=== PATIENT | female | born 1960 | race Caucasian/White ===

== ENCOUNTER → 2017-08-04 | Outpatient (CLI) | payer OTHER ==
[~2017-08-04] MED LIST: AMBIEN 10 MG TA10 MG PO; ASPIR 8181 MG PO; ASPIRIN325 PO; ATIVAN1 MG PO; CALCIUM; CAPZASIN; CARISOPRODOL 3350 MG PO; CLONAZEPAM 1 MG1 M1 PO; CYMBALTA60 MG PO; EXCEDRIN SINUS1 EAC2; FISHOIL PO; HYDROCODON-ACE1 EAC7 PO; HYDROCODON-ACE1 EACH PO; HYDROCODONE-AP1 EAC6 PO; IRON325 PO; MELOXICAM7.5 MG PO; MULTIVITAMINS; NEXIUM40 MG PO; OMEPRAZOLE40 MG PO; ONDANSETRON HCL4 M2 PO; TOPROL XL25 MG PO; TOPROL XL50 MG PO; TRAMADOL 50 MG50 MG PO; ULTRAM 50MG TAB50 MG PO; ULTRAM50 MG PO; VICODIN; VITAMIN B-121000 MCG PO; VITAMINC500 PO; ZOFRAN 4 MG ORAL4 MG PO; ZOLOFT100 MG PO; ZOLOFT25 MG PO; [UNRECOGNIZED DRUG - OTHER]
--- NOTE | 2017-08-06 09:51 | PAINCON ---
[address] [address] PAIN MANAGEMENT CONSULTATION Name: PHIL MERCER Room: [facility] Gita#: [id number] Admission: 08/04/17 Attend Phys: Ricardo Martinez Discharge: Date of : 56 Report #: [id number] THIS REPORT FOR: //name// CC: Ravin Darling DATE OF SERVICE: 08/04/2017 HISTORY OF PRESENT ILLNESS: The patient is a 57-year-old female, typically treated by Dr. Lisandro Darling for cervical radiculopathy, ongoing axial back pain, osteoarthritis affecting bilateral shoulders, elbows and knees. She requires complex medication management. She had been treated by Dr. Lisandro Darling for a number of years, I had actually treated her back in [address] Lisandro Darling took over her care, I believe, in 12/2008. She returns to pain clinic today, she has been stable on hydrocodone 5/325 one tablet up to 4 times a day, carisoprodol 350 mg b.i.d., tramadol 50 mg 3-4 a day. She does have some chronic anxiety and depression, uses sertraline 25 mg b.i.d. She is hypertensive and has been stable on metoprolol 50 mg b.i.d., the latter written by her generalist physician. She returns to pain clinic today for a routine followup, though she is quite tearful today. She has had multiple psychosocial issues. She had lost her job. She now works in the [employer]. She has some financial concerns and has new insurance. She bought the Affordable Care Act insurance from the state exchange and unfortunately her primary care physician and health advisor are not on this and she has not been able to refill her Toprol. She is a little hypertensive today. She also tells me that her mother had passed in the past few months and her 's mother (the patient's [id number]) last night. Overall, her pain has been worse with stresses and increased activity. She rates her pain a "10+" on VAS, although notes her average pain is about a 7/10. PHYSICAL EXAMINATION: Shows 5 feet 4 inches, 123 pounds female, BMI is 21.1 kilograms per meter squared. Blood pressure is modestly elevated 162/92, pulse 97, respirations 18. Cervical range of motion is a little bit limited, shoulder range of motion is full. Strength is 4/5 to all muscle groups tested, though subjective pain in the shoulder and elbows. She does have pain in her right knee, though exam is fairly unremarkable. No ballottable edema is noted and the ligaments are intact. Left knee does show a little bit of laxity in the drawers test, but no subjective pain noted here. The patient does note pain in the left ankle and indeed there is a bony prominence, left foot medial aspect of the arch. She is status post [facility] [place] [address] PAIN MANAGEMENT CONSULTATION Name: PHIL MERCER Room: [facility] MELINA Gita#: [id number] Admission: 08/04/17 Attend Phys: Ricardo Martinez Discharge: Date of : 56 Report #: [id number] hammertoe surgeries on both feet greater than 10 years ago. We reviewed the fact that opiate medications are being used to provide analgesia adequate to support activities of daily living, not attempting to achieve a specific pain score on the 0-10 Visual Analog Scale. The current opiate medications are providing sufficient analgesia to allow the patient to participate in activities of daily living. The patient is not exhibiting any aberrant behavior suggestive of drug diversion. The patient is not having any adverse reactions to medications. The patient is not suffering from daytime somnolence or mental acuity changes. The patient is managing opiate-induced constipation with appropriate pyiy-nib-kgcwzza agents and dietary considerations. The patient was counseled on concern for caution with operating a motor vehicle while using opiate medications. A physical exam was performed and the patient's functional status was evaluated. All patients with back pain were advised against the bed rest greater than 4 days and were advised to return to normal activities. Pain score assessment was noted and the treatment plan was reviewed with the patient. All current medications, both prescribed and OTC were reviewed and reconciled on the electronic medical record. Tobacco screening was accomplished and smoking cessation was advised when indicated. BMI was noted and diet/exercise modification was recommended for all patients following outside normal parameters. I reviewed with the patient today their responsibilities to safeguard prescription medications, reviewed their responsibility to utilize medications only as prescribed by the physician. They are to seek and receive pain medications only from 1 physician group ( [facility]). They are to use 1 pharmacy and keep the clinic informed if they change pharmacies. Their responsibilities include making followup visits in a timely fashion and to avoid abrupt discontinuation of medication usage. Their responsibilities further include bringing their medications (bottles from the pharmacy with residual pills) to the visit for possible confirmation of pill counts and the patient understands it is their responsibility to submit to random drug screens to ensure both that the medications prescribed are present, and that no other controlled substances are present. All prescriptions provided today were generated electronically. ASSESSMENT: Symptomatic chronic pain syndrome requiring complex medication management, osteoarthritis affecting bilateral shoulders, elbows, knees and feet. Cervical radiculopathy by history, chronic anxiety and hypertension. RECOMMENDATION: We will renew current medications unchanged, typically Zoloft and metoprolol have been written by her generalist and/or health advisor, I will renew those today. I have taken the liberty of renewing her hydrocodone 5/325, #120 tablets for release today, 4 weeks and 8 weeks; renewed tramadol [address] [place] [address] PAIN MANAGEMENT CONSULTATION Name: PHIL MERCER Room: [facility]#: [id number] Admission: 08/04/17 Attend Phys: Ricardo Martinez Discharge: Date of : 56 Report #: [id number], 100 tablets for 30 days, 1 tablet 3-4 times a day with 2 refills. Follow up in 3 months for reevaluation. Discharged in good stable condition. We had a moderately prolonged visit today reviewing extensive interval history. The patient was seen for greater than 25 minutes; approximately 50% of this time was spent counseling the patient. <ELECTRONICALLY SIGNED> By: Danny Darling DO 08/06/17 0951 [id number] Darling DO /nt
== END ==
LOC: M.PC 07-28 09:00
DX: I10 Essential (primary) hypertension (principal); M19.022 Primary osteoarthritis, left elbow; M19.021 Primary osteoarthritis, right elbow; M19.012 Primary osteoarthritis, left shoulder; M19.011 Primary osteoarthritis, right shoulder; M17.0 Bilateral primary osteoarthritis of knee; M19.072 Primary osteoarthritis, left ankle and foot; M19.071 Primary osteoarthritis, right ankle and foot; M54.2 Cervicalgia; F41.8 Other specified anxiety disorders

== ENCOUNTER → 2018-06-28 | Outpatient (CLI) | payer OTHER ==
[~2018-06-28] MED LIST changes: +BACLOFEN 10MG T10 MG PO
--- NOTE | ~2018-06-28 | PAINCON ---
[address] [address] PAIN MANAGEMENT CONSULTATION Name: PHIL MERCER Room: [facility] CHARLES Pelayo#: [id number] Admission: 06/28/18 Attend Phys: Abdias Jackson MD Discharge: Date of : 56 Report #: [id number] THIS REPORT FOR: //name// CC: Ravin Jackson DATE OF SERVICE: 06/28/2018 HISTORY/CHIEF COMPLAINT: Here for medication renewal. FOLLOWUP HISTORY: The patient is a 58-year-old female who has been referred to the Pain Clinic. She has a history of generalized joint pain. She has had problems over the number of years. At this juncture, she is suffering from frequent spasms. 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 She works at the [email or web address]. The patient's primary physician Dr. Narvaez has retired. She has come to the pain clinic with the hopes of receiving her medication and pain control through the Pain Clinic. She has had epidural steroid injections in the past. She has undergone physical therapy. She notes her pain increases with activities, walking, sitting, standing, climbing stairs, bending and lifting. Use of medication and heat have been helpful. She has a history of migraines. Has had some problems with stricture of esophagus. She has had some problems with cervical radiculopathy and continues to have some axial back pain affecting her shoulders bilaterally. Has some complaints of pain in her elbows and knees. She has been treated with complex medical management. She comes to the Pain Clinic with his desire to undergo treatment. ALLERGIES: No known drug allergies. CURRENT MEDICATIONS: Vitamin C 500 mg b.i.d., aspirin 81 mg, baclofen 10 mg t.i.d., Nexium 40 mg b.i.d., hydrocodone 5/325 one p.o. q.i.d., metoprolol XL 50 mg b.i.d., multivitamins 1 tablet, Zoloft 25 mg, 2 tablets daily, tramadol 50 mg 1 tablet q. 4-6 hours p.r.n. PAST MEDICAL HISTORY: 1. Ventricular septal defect, its be monitored. 2. Migraines. 3. Osteoarthritis of the joints as described above. 4. Bone spur in the neck. 5. Esophageal stricture. 6. Chronic right shoulder pain, bilateral elbow pain, bilateral hip pain, bilateral knee pain, chronic intractable pain. PAST SURGICAL HISTORY: Total hysterectomy in 1984, bilateral foot surgery in 2002, hernia repair in 1999 and 8 inches of intestine removed at the same time, tonsils in 1969, arthritis, dilation of the [place]ophagus 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 REVIEW OF SYSTEMS: Bilateral knee pain, neck pain, mid back pain, bilateral hip pain, right shoulder pain, bilateral elbow pain, anxiety disorder, gastroesophageal reflux disease, insomnia. LABORATORY DATA: No new laboratory values are available at the time of our interview. PAIN CLINIC ASSESSMENT: 1. Osteoarthritis. The patient has some arthritic changes involving her neck, shoulders, elbows, knees. The patient is not being treated for rheumatoid arthritis. 2. Height 5 feet 4 inches, weight 111 pounds, BMI is 19. 3. Vital signs: Blood pressure 128/72, heart rate 75, respiratory rate 16, room air saturation 99%, temperature is 98.2. 4. Pain intensity 6/10. 5. Fall history: The patient has not fallen in the last 3 months. The patient did fall on the ice about 10 days ago, did not require a visit to the Emergency Room. 6. Blood thinner. The patient is not on a blood thinning medication. 7. Hypertension. The patient is being treated for hypertension. 8. Opioids greater than 6 weeks. The patient received her medications through her primary physician. 9. Risk assessment tool, low for opioid use. 10. Functional assessment tool. 11. Recreational drug use. The patient denies use of recreational drugs. 12. Tobacco: The patient stopped smoking about 2 years ago, has 40 year smoking history. 13. Alcohol. The patient drinks only on social occasion. PHYSICAL EXAMINATION: GENERAL: The patient is a well-developed, well-nourished white female. Appears her stated age. She is alert and oriented x 3. Her affect is appropriate. Speech is fluent. HEENT: Normocephalic, atraumatic. Extraocular eye muscles intact. Sclerae nonicteric. Mucous membranes are moist. NEUROLOGIC: Without adenopathy or JVD. The patient has pain in the lower portion of her back. Deep tendon reflexes are +1 for the biceps bilaterally. The patient notes a popping sensation in the lower portion of her back. Forward bending to 45 degrees cause some increased discomfort. Lumbar extension was not very problematic left and right lateral rotation, left and right lateral bending were not very problematic. Deep tendon reflexes at the knees are +2 and +1 at the ankles bilaterally. [address] [place] [address] PAIN MANAGEMENT CONSULTATION Name: PHIL MERCER Room: [facility]#: [id number] Admission: 06/28/18 Attend Phys: Abdias Jackson MD Discharge: Date of : 56 Report #: [id number] IMPRESSION: Chronic right shoulder pain, bilateral elbow pain, bilateral hip pain, bilateral knee pain, chronic intractable pain as a result of her chronic symptomatic pain requiring complex medical management including osteoarthritis effecting her shoulders, elbows, knees and feet as well as some cervical radiculopathy history, chronic anxiety and hypertension. RECOMMENDATIONS: We will continue with her medications of tramadol 50 mg 1 p.o. t.i.d., total 100 tablets have been dispensed, hydrocodone 5/325 one p.o. q.4-6 hours 120 mg tablets, baclofen 10 mg 1 p.o. t.i.d. These medications enable the patient to stay gainfully employed. States that she has taken the medication as prescribed. We have discussed the problems with opioid medications, which could include development of tolerance as well as problems with addiction. The patient feels her medications are working well. She keeps them in a guarded area. She would like to continue with her medication. We will follow the patient on a regular basis. We would like to thank you for letting us participate in her care. We hope she continues to improve. By: [id number]. MD carson Cote
== END ==
LOC: M.PC 05:55
DX: M19.011 Primary osteoarthritis, right shoulder (principal); M19.012 Primary osteoarthritis, left shoulder; M17.0 Bilateral primary osteoarthritis of knee; M19.022 Primary osteoarthritis, left elbow; M19.021 Primary osteoarthritis, right elbow; M54.12 Radiculopathy, cervical region; G89.4 Chronic pain syndrome; F41.9 Anxiety disorder, unspecified; I10 Essential (primary) hypertension; Z79.899 Other long term (current) drug therapy

== ENCOUNTER → 2018-08-02 | Outpatient (CLI) | payer OTHER ==
[~2018-08-02] MED LIST changes: +PROPRANOLOL 1010 MG PO
--- NOTE | ~2018-08-02 | PAINCON ---
[address] [address] PAIN MANAGEMENT CONSULTATION Name: PHIL MERCER Room: [facility]#: [id number] Admission: 08/02/18 Attend Phys: Abdias Jackson MD Discharge: Date of : 56 Report #: [id number] THIS REPORT FOR: //name// CC: Syd Jackson DATE OF SERVICE: 08/02/2018 HISTORY OF PRESENT ILLNESS: The patient is a 58-year-old female who has been seen in the Pain Clinic. She has a history of joint pain, this has been problematic for a number of years. She works in [employer] in [place]. She has received pain medications from her primary physician. She is retired. She has undergone physical therapy. She has a history of migraine headaches. She has had some problems with strictures of her esophagus. She has had cervical radicular problems as well as axial back pain. She has pain in her elbows as well as her knees. She has been treated with complex medical management to help her stay gainfully employed and active. ALLERGIES: No known drug allergies. MEDICATIONS: Vitamin C 500 mg b.i.d., aspirin 81 mg, baclofen 10 mg t.i.d., Nexium 40 mg b.i.d., hydrocodone 5/325 one p.o. q.i.d., metoprolol XL 50 mg b.i.d., multivitamin 1 tablet, Zoloft 25 mg 2 tablets daily, tramadol 50 mg 1 tablet q. 4-6 hours p.r.n. PAIN CLINIC ASSESSMENT AND PQRS: 1. The patient has some arthritic changes in her neck, shoulders, elbows, and knees. She is not being treated for rheumatoid arthritis. 2. Height 5 feet 4 inches, weight 108 pounds, BMI is 18, blood /82, heart rate 84, respiratory rate 16, room air saturation 97%, temperature 98.0. 3. Pain: 12/17. 4. Fall history: The patient did fall on ice in June. 5. Blood thinner: The patient is not on a blood thinning medication. 6. Hypertension: The patient is being treated for hypertension. 7. Opioid greater than 6 weeks: The patient receives her medications from [facility]. 8. Risk assessment tool: Low for opioid use. 9. Functional assessment tool. 10. Recreational drug use: The patient denies use of recreational drugs. 11. Tobacco: The patient stopped smoking about 2 years ago. She has a 66-cfzd-emgw smoking history. 12. Alcohol: The patient denies use of alcoholic beverages except on social occasions. PHYSICAL EXAMINATION: GENERAL: The patient is a well-developed, well-nourished, [place] [address] PAIN MANAGEMENT CONSULTATION Name: SYLVIEPHIL A Room: [facility]#: [id number] Admission: 08/02/18 Attend Phys: Abdias Jackson MD Discharge: Date of : 56 Report #: [id number] appears her stated age. She is alert and oriented x 3. Her affect is appropriate. Speech is fluent. HEENT: Normocephalic, atraumatic. Extraocular eye muscles are intact. Sclerae nonicteric. Mucous membranes are moist. NECK: Without adenopathy or JVD. MUSCULOSKELETAL: The patient has pain in the lower portion of her back. Deep tendon reflexes are +1. She complains of popping sensation in her lower back. Forward bending at 45 degrees notes increased discomfort. Deep tendon reflexes are +2 at the knees and ankles bilaterally. IMPRESSION: Chronic right shoulder pain, bilateral elbow pain, bilateral hip pain, bilateral knee pain, chronic intractable pain, treated with a complex medical management including opioid medications. RECOMMENDATIONS: We discussed treatment options with the patient. We will continue with the patient's use of tramadol 50 mg t.i.d., hydrocodone 5/325 one p.o. q. 4-6 hours 120 tablets, baclofen 10 mg 1 p.o. t.i.d. The patient finds that these medications enable her to remain gainfully employed. She states that she is taking the medications as prescribed, she keeps them in a guarded area. She is not having any problems with mentation. A script for these medications have been rewritten. The patient will follow up in the future as needed. We would like to thank you for letting us participate in her care. We hope she continues to improve. By: [id number]. Matt Jackson MD /nael
== END ==
LOC: M.PC 07-26 08:00
DX: M25.511 Pain in right shoulder (principal); G89.4 Chronic pain syndrome; M25.561 Pain in right knee; M25.562 Pain in left knee; M25.551 Pain in right hip; M25.552 Pain in left hip; M25.521 Pain in right elbow; M25.522 Pain in left elbow; Z79.899 Other long term (current) drug therapy; Z79.891 Long term (current) use of opiate analgesic

== ENCOUNTER → 2018-08-30 | Outpatient (CLI) | payer OTHER ==
--- NOTE | 2018-09-01 12:05 | PAINCON ---
[facility] [address] [place] [address] PAIN MANAGEMENT CONSULTATION Name: PHIL MERCER [facility] [id number] Admission: 08/30/18 Attend Phys: Abdias Jackson MD Discharge: Date of : 56 Report #: [id number] THIS REPORT FOR: //name// CC: Syd Jackson DATE OF SERVICE: 08/30/2018 CHIEF COMPLAINT: "Things are going well. FOLLOWUP HISTORY: The patient is a 58-year-old female who has been seen in the pain clinic. She has a history of pain in a number of areas. She has knee pain. Pain that is most problematic today is that in her right arm. Notes sometimes her hand goes to sleep if she lays on it. She is doing reasonably well from her esophageal stricture point. She does occasionally have pills get stuck in her throat. She has undergone a number of EGD's in the past. Continues to work at the [employer]. She likes her job. Works from 4 a.m. and gets off at 10:30. She states she has more of a morning person. Has returned today for renewal of her medication. Feels that the medications are helpful. Rates her pain as a 6-7/10 today. ALLERGIES: No known drug allergies. CURRENT MEDICATIONS: Vitamin C 500 mg b.i.d., aspirin 81 mg, baclofen 10 mg t.i.d., Nexium 40 mg b.i.d., hydrocodone 5/325 q.i.d., metoprolol XL 50 mg b.i.d., multivitamin tablet 1, Zoloft 25 mg 2 tablets daily, tramadol 50 mg one every 4-6 hours p.r.n. PAIN CLINIC ASSESSMENT/PQRS: 1. The patient has some arthritic changes in her neck, shoulders, elbows and knees. She has not been treated for rheumatoid arthritis. 2. Height 5 feet 4 inches, weight 107 pounds, BMI 18.3. 3. Vital Signs: Blood pressure 125/79, heart rate 84, respiratory rate 16, room air saturation 97%, temperature 98.3. 4. Pain intensity 6-7/10. 5. Fall history, the patient has not fallen in the last 3 months. 6. Blood thinner. The patient is not on a blood thinning medication. 7. Hypertension. The patient is being treated for hypertension. 8. Opioid greater than 6 weeks. The patient [facility]. 9. Risk assessment tool, low for opioid use. 10. Functional assessment tool. 11. Recreational drug use. The patient denies use of recreational drugs. 12. Tobacco: The patient has stopped smoking cigarettes about 2 years ago, has a 19-pxfx-[place] [address] PAIN MANAGEMENT CONSULTATION Name: PHIL MERCER Julián Room: [facility]#: [id number] Admission: 08/30/18 Attend Phys: Abdias Jackson MD Discharge: Date of : 56 Report #: [id number] 13. Alcohol: The patient denies use of alcoholic beverages except on a social occasion. PHYSICAL EXAMINATION: GENERAL: The patient is well-developed, well-nourished white female. Appears her stated age. She is alert and oriented x 3. Affect is appropriate. Speech is fluent. HEENT: Normocephalic, atraumatic. Extraocular eye muscles intact. Sclerae nonicteric. Mucous membranes moist. NECK: Without adenopathy or JVD. HEART: Regular rate. ABDOMEN: Nontender. Bowel sounds present. MUSCULOSKELETAL: Upper extremity judged to be 5-/5 for the major muscle groups in the upper extremity. The patient has some pain and discomfort in the right knee as well as in the shoulders, neck, and elbow area. IMPRESSION: Chronic right shoulder pain, bilateral elbow pain, bilateral hip pain, bilateral knee pain, chronic intractable pain treated with complex medical management including opioid medications. RECOMMENDATIONS: We will continue with the patient's current medications. Feels that the medications are helpful. She remains gainfully employed. Feels that the medication is doing a good job. She is able to perform and do more activities with less discomfort on her current medical regimen. A script for hydrocodone 5 mg 1 p.o. q.i.d., baclofen 10 mg t.i.d., and Ultram 50 mg 1 p.o. t.i.d. to q.i.d. 100 tablets have been reissued. We would like to thank you for letting us participate in her care. We hope she continues to improve. <ELECTRONICALLY SIGNED> By: Abdias Jackson MD 09/01/18 1205 [id number]. Matt Jackson MD /nael
== END ==
LOC: M.PC 04:53
DX: G89.29 Other chronic pain (principal); M54.2 Cervicalgia; M25.551 Pain in right hip; M25.552 Pain in left hip; M25.521 Pain in right elbow; M25.522 Pain in left elbow; M25.561 Pain in right knee; M25.562 Pain in left knee; I10 Essential (primary) hypertension; Z79.82 Long term (current) use of aspirin; Z79.899 Other long term (current) drug therapy; Z79.891 Long term (current) use of opiate analgesic

== ENCOUNTER → 2018-09-27 | Outpatient (CLI) | payer OTHER ==
--- NOTE | ~2018-09-27 | PAINCON ---
[address] [address] PAIN MANAGEMENT CONSULTATION Name: PHIL MERCER Room: [facility] CHARLES Pelayo#: [id number] Admission: 09/27/18 Attend Phys: Abdias Jackson MD Discharge: Date of : 56 Report #: [id number] THIS REPORT FOR: //name// CC: Syd Jackson DATE OF SERVICE: 09/27/2018 CHIEF COMPLAINT: Here for my medicine and I am having some pain in my right shoulder, right elbow, and right leg. HISTORY OF PRESENT ILLNESS: The patient is a 58-year-old female who has been followed in the pain clinic. As you recall, she has pain in her right arm. Pain radiates down her right arm as well as down into her right elbow. She is having some discomfort in her right knee. Has noted some increased swelling and pain in her left and right ankle. She continues to be dizzy. Denies any new trauma. She feels may be that her increased pain and discomfort is secondary to working. 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 She works early at 4:00 a.m. and gets off at 10:30. She rates her pain as a 9/10 today. Notes that the change in weather pattern, which has been very fluctuating has made her pain more problematic. There is a possibility of Tornadic action today. There is significant rain today as well as for the next 4-5 days. ALLERGIES: No known drug allergies. CURRENT MEDICATIONS: Vitamin C 500 mg, aspirin 81 mg, baclofen 10 mg t.i.d., Nexium 40 mg b.i.d., hydrocodone 5/325 q.i.d., metoprolol XL 50 mg, multivitamin tablet 1, Zoloft 25 mg 2 tablets daily, tramadol 50 mg one every 4-6 hours p.r.n. PAIN CLINIC ASSESSMENT AND PQRS: 1. The patient has some arthritic changes in her neck, shoulders, elbows and knees. She is not being treated for rheumatoid arthritis. 2. Height 5 feet 4 inches, weight 112 pounds, BMI is 19.3. 3. Vital signs: Blood pressure 119/76, heart rate 77, respiratory rate 16, room air saturation 97%, temperature 98.1. 4. Pain intensity 9/10. 5. Fall history: The patient has not fallen in the last 3 months. 6. Blood thinner. The patient is not on a blood thinning medication. 7. Hypertension. The patient is being treated for hypertension. 8. Opiates greater than 6 weeks. The patient [facility]. 9. Risk assessment tool, low for opioid use. 10. Functional assessment tool. 11. Recreational drug use. The patient denies [place] [address] PAIN MANAGEMENT CONSULTATION Name: PHIL MERCER ANDERSON [id number] Admission: 09/27/18 Attend Phys: Abdias Jackson MD Discharge: Date of : 56 Report #: [id number] 12. Tobacco: The patient stopped smoking cigarettes 2 years ago, has a 84-[id number]-wxpw history. 13. Alcohol: The patient denies alcoholic beverages except on rare social events. PHYSICAL EXAMINATION: GENERAL: The patient is a well-developed, well-nourished white female. Appears her stated age. She is alert and oriented x 3. Affect is appropriate. Speech is fluent. HEENT: Normocephalic, atraumatic. Extraocular eye muscles intact. Sclerae nonicteric. Mucous membranes are moist. NECK: Without adenopathy or JVD. HEART: Regular rate. EXTREMITIES: Upper extremity muscle strength is judged to be 5-/5 for the major muscle groups. The patient has pain in her right shoulder, also has pain down in the right elbow. Has pain in her right knee. Notes some bilateral swelling and discomfort in her ankles. IMPRESSION: 1. Chronic right shoulder pain. 2. Bilateral elbow pain. 3. Bilateral hip pain. 4. Bilateral knee pain. 5. Chronic intractable pain treated with complex medical management. 6. Opioid medication management. RECOMMENDATIONS: We discussed treatment options with the patient. At this juncture, we will continue with her medications. She feels that the tramadol medication is helpful, takes about 4 tablets daily, feels that baclofen is helpful with the muscle spasm and hydrocodone is beneficial as well. Notes that she is having some increased pain and discomfort with activities such as walking, standing, climbing stairs, and lifting. 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 Feels that this may have something to do with her pain as well. She is taking the medications as prescribed. Keeps it in a guarded area. She is aware that opioid medications can be a problem for some people with development of tolerance as well as the development of addictive behaviors. She feels the medication is helpful and enables her to continue to be gainfully employed. Feels that her pain is 50% improved with her medication regimen at this time. A script for her medications of tramadol 50 mg 1 p.o. q.i.d. has been written. The patient will also continue with hydrocodone 1 tablet q. 4-6 hours total of 120 tablets, and baclofen 10 mg 1 [place] [address] PAIN MANAGEMENT CONSULTATION Name: PHIL MERCER Room: [facility].#: [id number] Admission: 09/27/18 Attend Phys: Abdias Jackson MD Discharge: Date of : 56 Report #: [id number] We would like to thank you for letting us participate in her care. We hope she continues to improve. By: [id number]. Matt Jackson MD /nt
== END ==
LOC: M.PC 11:00
DX: G89.29 Other chronic pain (principal); M19.011 Primary osteoarthritis, right shoulder; M19.012 Primary osteoarthritis, left shoulder; M19.021 Primary osteoarthritis, right elbow; M19.022 Primary osteoarthritis, left elbow; M17.0 Bilateral primary osteoarthritis of knee; M47.812 Spondylosis without myelopathy or radiculopathy, cervical region; I10 Essential (primary) hypertension; Z79.891 Long term (current) use of opiate analgesic; Z79.899 Other long term (current) drug therapy

== ENCOUNTER → 2018-11-01 | Outpatient (CLI) | payer OTHER ==
[~2018-11-01] MED LIST changes: +NORCO 5-325 TA1 EAC1 PO
--- NOTE | ~2018-11-01 | PAINCON ---
[address] [address] PAIN MANAGEMENT CONSULTATION Name: PHIL MERCER Room: [facility] CHARLES Lee.#: [id number] Admission: 11/01/18 Attend Phys: Abdias Jackson MD Discharge: Date of : 56 Report #: [id number] THIS REPORT FOR: //name// CC: Syd Jackson DATE OF SERVICE: 11/01/2018 CHIEF COMPLAINT: Pain in the right knee and joints. HISTORY: The patient is a 58-year-old female who has been followed in the pain clinic. She returns today for renewal of her medications. She has had pain involving her right arm. Notes the pain that radiates down into her elbow. She has been out of her medications since the , which is 3 days. She is having a migraine headache. Notes that her migraine headaches oftentimes last for a number of days. She was also having some pain and discomfort in her foot on the left side. She describes it as a painful knot at the bottom of her foot. She feels that the use of baclofen, tramadol, and hydrocodone are still helpful. Activities such as walking, sitting, standing, lifting, and bending are problematic. She has used heat and finds that that has been beneficial as well. She states that her insurance has given her a limited number of visits to her physicians. She continues to work. She feels that visits to her physicians are $500 copay. She finds that quite a bit of money at this point and she is not sure that she could sustain that level of cost. ALLERGIES: No known drug allergies. CURRENT MEDICATIONS: Vitamin C, aspirin 81 mg, baclofen 10 mg 1 p.o. t.i.d., Nexium 40 mg b.i.d., hydrocodone 5/325 q.i.d., metoprolol XL 50 mg, multivitamins, Zoloft 25 mg 1 tablet daily, tramadol 50 mg every 4-6 hours p.r.n. PAIN CLINIC ASSESSMENT/PQRS: 1. The patient has some arthritic changes in her neck, shoulders, elbows, and knees. She is not being treated for rheumatoid arthritis. 2. Height 5 feet 4 inches, weight 109 pounds, BMI is 18.8. 3. Vital signs: Blood pressure 114/83, heart rate 82, respiratory rate 16, room air saturation 97%, temperature 98.8. 4. Pain intensity score 9/10. 5. Fall history: The patient has not fallen in the last 3 months. 6. Blood thinner. The patient is not on a blood thinning medication. 7. Hypertension. The patient is being treated for hypertension. 8. Opioid greater than 6 weeks. The patient receives her medication from [facility]. 9. Risk assessment tool, low [place] [address] PAIN MANAGEMENT CONSULTATION Name: PHIL MERCER ANDERSON Room: [facility] Gita#: [id number] Admission: 11/01/18 Attend Phys: Abdias Jackson MD Discharge: Date of : 56 Report #: [id number] 10. Functional assessment tool. 11. Recreational drug use. The patient denies use of recreational drugs. 12. Tobacco: The patient has stopped smoking cigarettes 2 years ago, had a 65-svck-worm history. 13. Alcohol: The patient denies alcoholic beverages except on rare occasion. PHYSICAL EXAMINATION: GENERAL: The patient is a well-developed, well-nourished white female. Appears her stated age. She is alert and oriented x 3. Her affect is appropriate. Speech is fluent. HEENT: Normocephalic, atraumatic. Extraocular eye muscles intact. Sclerae nonicteric. Mucous membranes are moist. The patient is complaining of a migraine headache at this juncture. It has been problematic over the last few days. NECK: Without adenopathy or JVD. HEART: Regular rate. EXTREMITIES: Upper extremity muscle strength is judged to be 5-/5 for the major muscle groups in the upper extremity. The patient has pain that radiates down into her arms and her elbow. Has some pain in her right knee today, which is problematic. Has noted some swelling and discomfort in her ankles in the past. IMPRESSION: 1. Chronic right shoulder pain. 2. Bilateral elbow pain. 3. Bilateral hip pain. 4. Bilateral knee pain. 5. Chronic intractable pain treated with complex medical management using opioids. RECOMMENDATIONS: We discussed treatment options with the patient. Risks and benefits of opioid medications were again discussed. They include but are not limited to development of tolerance as well as possibility of addiction. The patient does not feel she is addict to her medication. She is taking the medication as prescribed. States gainfully employed. Feels that the baclofen medication is beneficial. She feels that tramadol is helpful as well. The hydrocodone seems to be helpful and she would like to continue with her medication. She explained that her insurer has limited number of visits to her physicians. A monthly visits to the pain clinic for more than $500 a month. She is unable to sustain this. We will have the patient come on a bimonthly/2 months cycle. She will call us if she has any concerns. A script for her medications of hydrocodone 5/325 one p.o. q.i.d. has been written. She will also continue with tramadol and baclofen. Refills for these medications have been made as well. We will continue with the use of her medications to help control her pain and enable her to stay gainfully employed. She will call us if she has any concerns. We will continue and rewritten the patient's medications and we will continue with followup in the future in controlling [place] [address] PAIN MANAGEMENT CONSULTATION Name: PHIL MERCER ANDERSON Room: [facility].#: [id number] Admission: 11/01/18 Attend Phys: Abdias Jackson MD Discharge: Date of : 56 Report #: [id number] complex medical management with the use of opioid medications as a tool. We would like to thank you for letting us participate in her care. We hope she continues to improve. By: [id number]. Matt Jackson MD /[place]
== END ==
LOC: M.PC 05:45
DX: M25.561 Pain in right knee (principal); G89.4 Chronic pain syndrome; M25.551 Pain in right hip; M25.552 Pain in left hip; M25.562 Pain in left knee; M25.522 Pain in left elbow; M25.521 Pain in right elbow; Z79.891 Long term (current) use of opiate analgesic; Z79.899 Other long term (current) drug therapy

== ENCOUNTER → 2018-12-27 | Outpatient (CLI) | payer OTHER ==
--- NOTE | ~2018-12-27 | PAINCON ---
[address] [address] PAIN MANAGEMENT CONSULTATION Name: PHIL MERCER Room: [facility] CHARLES Dsouza.Ronit.#: [id number] Admission: 12/27/18 Attend Phys: Abdias Jackson MD Discharge: Date of : 56 Report #: [id number] THIS REPORT FOR: //name// CC: Syd Jackson DATE OF SERVICE: 12/27/2018 CHIEF COMPLAINT: "I have noticed migraine headaches, more at this point." HISTORY: The patient is a 58-year-old female who has been followed in the pain clinic. As you may recall, she has pain in her right knee as well as in her joints. She also has a history of migraine headaches. She had been using Soma in the past. She feels that medication has been helpful with decreasing her pain as well as enabling her to rest more comfortably. She has tried baclofen. She stopped taking this medication, did not feel that it was working as well as she would like. She would like to resume use of the Soma medications. 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 This work . It involves walking, sitting, bending, standing and all these can be quite problematic for her at this juncture. ALLERGIES: No known drug allergies. CURRENT MEDICATIONS: Vitamin C, aspirin 81 mg, baclofen 10 mg 1 p.o. t.i.d., Nexium 40 mg b.i.d., hydrocodone 5/325 one p.o. q.i.d., metoprolol XL 50 mg, multivitamins, Zoloft 25 mg 1 tablet b.i.d., and tramadol 50 mg 1 q.4-6 hours. PAIN CLINIC ASSESSMENT/PQRS: 1. The patient has had some arthritic changes in her shoulders, neck, elbows. and knees. She is not being treated for rheumatoid arthritis. 2. Height 5 feet 4 inches, weight 106 pounds, BMI is 18. 3. Vital signs: Blood pressure 154/88, heart rate 95, respiratory rate 16, room air saturation is 98%, temperature 98.3. 4. Pain intensity 10. 5. Fall history: The patient has not fallen in the last 3 months. 6. Blood thinner. The patient is not on a blood thinning medication. 7. Hypertension. The patient is being treated for hypertension. 8. Opioids greater than 6 weeks. The [facility]. 9. Risk assessment tool, low for opioid use. 10. Functional assessment tool. 11. Recreational drug use. The patient denies use of recreational drugs. 12. Tobacco: The patient has stopped smoking cigarettes 2 years ago, has had a 07-kvlk-xrjo history. 13. Alcohol. The patient denies alcoholic beverages [place] [address] PAIN MANAGEMENT CONSULTATION Name: PHIL MERCER [id number] Admission: 12/27/18 Attend Phys: Abdias Jackson MD Discharge: Date of : 56 Report #: [id number] PHYSICAL EXAMINATION: GENERAL: The patient is a well-developed, well-nourished white female. Appears her stated age. She is alert and oriented x 3. Affect is appropriate. Speech is fluent. HEENT: Normocephalic, atraumatic. Extraocular eye muscles intact. Sclerae nonicteric. Mucous membranes are moist. NECK: Without adenopathy or JVD. HEART: Regular. EXTREMITIES: Upper extremity muscle strength judged to be 5-/5 for the major muscle groups in the upper extremity. The patient has pain and discomfort that radiates down into her arms and involves her elbow. Has some pain and discomfort in her right knee. Has noted some increased swelling in her ankles in the past. IMPRESSION: 1. Chronic right shoulder pain. 2. Bilateral elbow pain. 3. Bilateral hip pain. 4. Bilateral knee pain. 5. Chronic intractable pain treated with complex medical regimen using opioids. RECOMMENDATIONS: We discussed treatment options with the patient. At this juncture, she feels that her medications are helpful. She has noted some increased problems with migraine headaches. She was using Soma in the past. She found that medication was helpful with muscle spasms as well as she felt that it enables her to sleep better. She has not been taking the medication the baclofen medication. We will therefore renew her Soma. A script for 350 mg 1 p.o. b.i.d. has been written. The patient also has noted increase in her anxiety recently. She had been receiving Zoloft 25 mg 1 p.o. b.i.d. She felt that medication was helpful, but has not taken it for a number of months. She has noted her anxiety level increasing. We will rewrite for the Zoloft 25 mg 1 p.o. b.i.d. We will continue with the patient's [place] 5 mg one p.o. q.4-6 four tablets daily. A script for the tramadol 50 mg 1 p.o. t.i.d. have been rewritten. The patient will call us if she has any concerns. Hopefully, the resumption of Zoloft will help with her anxiety level. Our hope is that the muscle relaxant Soma will help with her relaxation as well, so that she is able to sleep better and continue to be gainfully employed. A script for these medications have been written. We will continue with her pain control using complex medical management using opioids. She will call us if she has any concerns. By: [id number]. Matt Jackson MD /[place]
== END ==
LOC: M.PC 05:08
DX: M25.511 Pain in right shoulder (principal); G43.909 Migraine, unspecified, not intractable, without status migrainosus; M25.551 Pain in right hip; M25.552 Pain in left hip; M25.562 Pain in left knee; M25.561 Pain in right knee; G89.4 Chronic pain syndrome; Z79.82 Long term (current) use of aspirin; Z79.891 Long term (current) use of opiate analgesic; Z79.899 Other long term (current) drug therapy

== ENCOUNTER → 2019-02-16 | Outpatient (CLI) | payer OTHER ==
[~2019-02-16] MED LIST changes: +HYDROCODONE-AP1 EA11 PO; +SOMA350 MG PO
--- NOTE | 2019-03-01 09:09 | PAINCON ---
[address] [address] PAIN MANAGEMENT CONSULTATION Name: PHIL MERCER Room: [facility] CHARLES Lee.#: [id number] Admission: 02/16/19 Attend Phys: Abdias Jackson MD Discharge: Date of : 56 Report #: [id number] THIS REPORT FOR: //name// CC: Syd Jackson DATE OF SERVICE: 02/16/2019 CHIEF COMPLAINT: Here for medication renewal. HISTORY: The patient is a 58-year-old female who has been followed in the pain clinic. She has chronic pain. Notes that she has continued to have some pain in her right knee. She notes that when she walks down stairs, there is a popping sensation and movement in her knee. She also has a history of migraine headaches. She has returned today with the hopes of renewing her medications. She has had no complications with the medications. She continues to work on early shift. She works from 3:00 a.m. in the morning to midday. She notes that the worst the pain has been more bothersome today. The barometric pressure has been changing. Temperature threatens to change about 50 degrees from midday to evening. She feels that her medications have been used chronically and may not be providing as much benefit. She rates her pain as a 9/10. She has been using hydrocodone 5/325 approximately every 4 hours. Finds that tramadol is helpful. Notes that activities such as walking, sitting, standing, going from a sitting to a standing position, bending and lifting are problematic. She would like to have her medications renewed. ALLERGIES: No known drug allergies. CURRENT MEDICATIONS: Vitamin C, aspirin 81 mg, baclofen 10 mg 1 p.o. t.i.d., Nexium 40 mg b.i.d., hydrocodone 5/325 one p.o. q.i.d., metoprolol XL 50 mg, multivitamins, Zoloft 25 mg 1 tablet b.i.d., and tramadol 50 mg one every 4-6 hours. PAIN CLINIC ASSESSMENT AND PQRS: 1. The patient has some arthritic changes in her shoulders, neck, and elbow. Note some problem in her right knee. She is not being treated for rheumatoid arthritis. 2. Height 5 feet 4 inches, weight 117 pounds, BMI is 20. 3. Vital Signs: Blood pressure 138/88, heart rate 98, respiratory rate 16, room air saturation 97%, and temperature 98.2. 4. Pain intensity 9/10. 5. Fall history: The patient has not fallen in the last 3 months. 6. Blood thinner. The patient is not on a blood thinning medication. 7. Hypertension. The patient is being treated for hypertension. 8. Opioids greater than 6 weeks. The patient [facility] [place] [address] PAIN MANAGEMENT CONSULTATION Name: JOMAR MERCERMatthew BARRON [id number] Admission: 02/16/19 Attend Phys: Abdias Jackson MD Discharge: Date of : 56 Report #: [id number] 9. Risk assessment tool, low for opioid use. 10. Functional assessment tool. The patient denies use of recreational drugs. 11. Tobacco: The patient denies use of tobacco. PHYSICAL EXAMINATION: GENERAL: The patient is a well-developed, well-nourished white female. Appears her stated age. She is alert and oriented x 3. Her affect is appropriate. Speech is fluent. HEENT: Normocephalic, atraumatic. Extraocular eye muscles intact. Sclerae nonicteric. Mucous membranes are moist. NECK: Without adenopathy or JVD. HEART: Regular rate. EXTREMITIES: Upper extremity muscle strength judged to be 5-/5 for the major muscle groups in the upper extremity. The patient does have some pain and discomfort radiates down into her arm, involves her elbow. Has some pain and discomfort in her right knee with a popping sensation, particularly when she is going up and down stairs. Also, notes some increased swelling in her ankles in the past. IMPRESSION: 1. Chronic right shoulder pain. 2. Bilateral elbow pain. 3. Bilateral hip pain. 4. Bilateral knee pain. 5. Chronic intractable pain treated with complex medical management using opioids. RECOMMENDATIONS: We discussed treatment options with the patient. At this juncture, she feels that her medications are helpful. She is not getting the same effect that she had. She has been taking these medications for a number of years. At this point, we will increase her hydrocodone to 7.5 mg 1 p.o. q.i.d. with the hopes that this would help with her pain. She rates it as a 9/10. Continues to work at her job. She gets up at 3:00 a.m. in the morning and works midday. 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 She notes that the use of her medications enable her to stay gainfully employed. Feels that her insurance is somewhat problematic. She is unable to purchase some of the other medications. She has returned today with further renewal of her medications. A script for her medications has been rewritten. The patient will be increased from 5 mg hydrocodone to 7.5 mg hydrocodone. She will also continue with the Zoloft medication. A script for this has been written. She will continue with tramadol 50 mg 1 p.o. t.i.d. to q.i.d. She will also continue with Soma to help with muscle spasms. She will call us if [place] [address] PAIN MANAGEMENT CONSULTATION Name: JOMAR MERCERMatthew BARRON Room: [facility]#: [id number] Admission: 02/16/19 Attend Phys: Abdias Jackson MD Discharge: Date of : 56 Report #: [id number] We would like to thank you for letting us participate in her care. We hope she continues to improve. <ELECTRONICALLY SIGNED> By: Abdias Jackson MD 03/01/19 [id number]. Matt Jackson MD /nt
== END ==
LOC: M.PC 06:01
DX: Z76.0 Encounter for issue of repeat prescription (principal); G89.4 Chronic pain syndrome; M25.511 Pain in right shoulder; M25.521 Pain in right elbow; M25.522 Pain in left elbow; M25.551 Pain in right hip; M25.552 Pain in left hip; M25.561 Pain in right knee; M25.562 Pain in left knee; I10 Essential (primary) hypertension; Z79.899 Other long term (current) drug therapy; Z79.891 Long term (current) use of opiate analgesic

== ENCOUNTER → 2019-04-13 | Outpatient (CLI) | payer OTHER ==
--- NOTE | ~2019-04-13 | PAINCON ---
[address] [address] PAIN MANAGEMENT CONSULTATION Name: PHIL MERCER Room: [facility].Ronit.#: [id number] Admission: 04/13/19 Attend Phys: Abdias Jackson MD Discharge: Date of : 56 Report #: [id number] THIS REPORT FOR: //name// CC: OSIRIS Jackson DATE OF SERVICE: 04/13/2019 CHIEF COMPLAINT: Cervical radicular pain. HISTORY: The patient is a 58-year-old female who has been followed in the pain clinic because of chronic pain. As you may recall, she suffers from pain in the cervical area. Also, has pain, which is chronic in her right knee. She notes that with walking stairs, she has pain and discomfort, popping sensation. She has noted increased pain since the holidays. Over the last 3 days, she has had a migraine headache that has been somewhat problematic. Overall, her pain seems to be helped with her current medical regimen. She is not having any complications. She has returned today with the hopes of renewing her medications, which are helpful. She feels that the [place] medication is beneficial. Tramadol helps as well and the Soma medications help with her spasms. She has returned with the hopes of renewing these medications. ALLERGIES: No known drug allergies. CURRENT MEDICATIONS: Vitamin C, aspirin 81 mg, baclofen 10 mg 1 p.o. b.i.d., Nexium 40 mg, hydrocodone 5/325 q.i.d., metoprolol XL 50 mg, multivitamins, Zoloft 25 mg 1 tablet b.i.d., tramadol 50 mg q. 4-6 hours. PAIN CLINIC ASSESSMENT AND PQRS: 1. The patient has some arthritic changes in her shoulders, neck, elbow. There are some problems in her right knee as well. She is not being treated for rheumatoid arthritis. 2. Height 5 feet 4 inches, weight 121 pounds, BMI is 20.8. 3. Vital signs: Blood pressure 149/79, heart rate 103, respiratory rate 16, room air saturation 97%, temperature 97.8. 4. Pain intensity 10/10 with inclusion of the migraine headache. 5. Fall history: The patient has not fallen in the last 3 months. 6. Blood thinner. The patient is not on a blood thinning medication. 7. Hypertension. The patient is being treated for hypertension. 8. Opioids greater than 6 weeks. The patient received medication from [facility]. 9. Risk assessment tool, low for opioid use. 10. Functional assessment tool, the patient denies use of recreational drugs. 11. Tobacco, the [place] [address] PAIN MANAGEMENT CONSULTATION Name: PHIL MERCER ANDERSON [facility] [id number] Admission: 04/13/19 Attend Phys: Abdias Jackson MD Discharge: Date of : 56 Report #: [id number] PHYSICAL EXAMINATION: GENERAL: The patient is a well-developed, well-nourished white female. Appears her stated age. She is alert and oriented x 3. Her affect is appropriate. Speech is fluent. HEENT: Normocephalic, atraumatic. The patient does look a little bit under the weather because of the migraine headache. NECK: Without adenopathy or JVD. HEART: Regular rate. EXTREMITIES: Upper extremity muscle strength judged to be 5-/5 for the major muscle groups in the upper extremity. The patient has pain that radiates down into her arms. It involves her elbows. She has some pain in her right knee. Has noted some popping sensation. Notes going up and down stairs can be problematic. Has experienced swelling in her ankles in the past. IMPRESSION: 1. Chronic right shoulder pain. 2. Bilateral elbow pain. 3. Bilateral hip pain. 4. Bilateral knee pain. 5. Chronic intractable pain treated with complex medical management using opioids. RECOMMENDATIONS: We discussed treatment options with the patient. Risks and benefits of her medications continue to be there. She is aware that opioid medications can become less effective as time goes on. She is aware that some patients can become addicted to these medications. She is not showing any signs of addiction. She has taken the medication as prescribed. These medications enable her to stay gainfully employed. She does have migraine headache. Hopefully, her migraine headache will start to subside. We have discussed the use of propranolol. It has been helping to quieten headaches. The patient will take Inderal 10 mg 1 p.o. b.i.d. for a day. If her headache persists, she would consider taking 2 Inderal b.i.d. We explained to the patient the use of propranolol. It can cross the blood brain barrier. Metoprolol is unable to do that. If she has any problems, she will call us. We would like to thank you for letting us participate in her care. We hope she continues to improve. A script for hydrocodone 7.5 mg 1 p.o. q.i.d. has been written, 120 tablets have been provided. The patient has been given a script for Soma 300 mg 1 p.o. b.i.d. She will also continue with tramadol 1 p.o. t.i.d. 100 tablets have been written. The patient will continue with Zoloft 25 mg. She will call us if she has any concerns. Hopefully, the use of Inderal [facility] [address] [place] [address] PAIN MANAGEMENT CONSULTATION Name: PHIL MERCER [facility] [id number] Admission: 04/13/19 Attend Phys: Abdias Jackson MD Discharge: Date of : 56 Report #: [id number] for a few days would help break her migraine headache and improve her pain condition. By: [id number]. Matt Jackson MD /nt
== END ==
LOC: M.PC 04:59
DX: M25.511 Pain in right shoulder (principal); M25.551 Pain in right hip; M25.552 Pain in left hip; M25.561 Pain in right knee; M25.562 Pain in left knee; G89.4 Chronic pain syndrome

== ENCOUNTER → 2019-06-01 | Outpatient (CLI) | payer OTHER ==
--- NOTE | 2019-06-13 09:10 | PAINCON ---
[facility] [address] [place] [address] PAIN MANAGEMENT CONSULTATION Name: PHIL MERCER Room: [facility] Meet.Ronit.#: [id number] Admission: 06/01/19 Attend Phys: Abdias Jackson MD Discharge: Date of : 56 Report #: [id number] THIS REPORT FOR: //name// CC: Syd Jackson DATE OF SERVICE: 06/01/2019 CHIEF COMPLAINT: Generalized joint pain. HISTORY: The patient is a 59-year-old female who has been followed in the pain clinic because of chronic pain, which has increased because of the cold weather. She has a history of cervical radiculopathy. She has pain in the right shoulder. Walking, sitting, standing, climbing stairs, going from a sitting to a standing position and bending, as well as lifting exacerbate her discomfort. She rates her pain as an 8/10 today. She did fall on ice. She did not seek medical attention. She feels that her medications of [place] and tramadol in conjunction with the muscle relaxant, Soma, were helpful. She has returned today with hopes of having these medications renewed to help control her pain. ALLERGIES: No known drug allergies. CURRENT MEDICATIONS: Vitamin C, aspirin 81 mg, baclofen 10 mg one p.o. b.i.d., Nexium 40 mg, hydrocodone 5/325 q.i.d., metoprolol XL 50 mg, multivitamins, Zoloft 25 mg one tablet b.i.d., tramadol 50 mg one q.4-6 hours. PAIN CLINIC ASSESSMENT AND PQRS: 1. The patient has some arthritic changes in her shoulders, neck, and elbow. She also has complains of pain in her right knee. She is not being treated for rheumatoid arthritis. 2. Height 5 feet 4 inches, weight 127 pounds, BMI is 21.9. 3. Vital signs: Blood pressure 138/84, heart rate 83, respiratory rate 18, room air saturation is 95%, temperature 98.1. 4. Pain intensity 12/17. 5. Fall history. The patient slipped and fell on the ice. She did not seek medical attention. 6. Blood thinner. The patient is not on a blood thinning medication. 7. Hypertension. The patient is being treated for hypertension. 8. Opioids greater than 6 weeks. The patient [facility]. 9. Risk assessment tool. Low for opioid use. 10. Functional assessment tool. The patient denies use of recreational drugs. 11. Tobacco. The patient denies use of tobacco. PHYSICAL EXAMINATION: [place] [address] PAIN MANAGEMENT CONSULTATION Name: PHIL MERCER [facility] [id number] Admission: 06/01/19 Attend Phys: Abdias Jackson MD Discharge: Date of : 56 Report #: [id number] GENERAL: The patient is a well-developed, well-nourished white female. Appears her stated age. She is alert and oriented x 3. Her affect is appropriate. Speech is fluent. HEENT: Normocephalic, atraumatic. Extraocular eye muscles intact. The patient has some pain and discomfort in her right shoulder. HEART: Regular rate. MUSCULOSKELETAL: Upper extremity muscle strength judged to be 5-/5 for the major muscle groups in the upper extremity. The patient has pain that radiates down into her elbows. Has some pain in her right knee. Continues to note a popping sensation in the knee, this is particularly when she is going up and down stairs. IMPRESSION: 1. Chronic right shoulder pain. 2. Bilateral elbow pain. 3. Bilateral hip pain. 4. Bilateral knee pain. 5. Chronic intractable pain treated with complex medical management using opioids. RECOMMENDATIONS: We discussed treatment options with the patient. At this juncture, she feels that her medications continue to be helpful. She stays gainfully employed. She does have somewhat of a physical job. She would like to continue with the [place] 7.5 mg one p.o. 4-6 hours p.r.n. She is not having any problems with mentation. Her sensorium is clear. She is not showing signs of addiction. She has taken the medication as prescribed. She also feels tramadol continues to be beneficial. Muscle spasms are improved with the use of Soma. She is not having any complications from her medications. She would like to have the medications renewed. She is aware that opioids can become less effective over time because of development of tolerance. We would like to thank you for letting us participate in her care. We hope she continues to improve. <ELECTRONICALLY SIGNED> By: Abdias Jackson MD 06/13/19 0910 1413 [id number]. Matt Jackson MD /nael
== END ==
LOC: M.PC 10:00
DX: G89.4 Chronic pain syndrome (principal); M25.511 Pain in right shoulder; M25.521 Pain in right elbow; M25.522 Pain in left elbow; M25.551 Pain in right hip; M25.552 Pain in left hip; Z79.899 Other long term (current) drug therapy; Z79.891 Long term (current) use of opiate analgesic

== ENCOUNTER → 2019-07-27 | Outpatient (CLI) | payer OTHER ==
--- NOTE | 2019-08-04 09:01 | PAINCON ---
[address] [address] PAIN MANAGEMENT CONSULTATION Name: PHIL MERCER Room: [facility]#: [id number] Admission: 07/27/19 Attend Phys: Abdias Jackson MD Discharge: Date of : 56 Report #: [id number] THIS REPORT FOR: //name// cc: Syd Dixon MD, David L. MD ~ THIS REPORT FOR: //name// CC: Syd Jackson DATE OF SERVICE: 07/27/2019 CHIEF COMPLAINT: Pain in the joint. HISTORY: The patient is a 59-year-old female who has been followed in the pain clinic. As you may recall, she suffers from chronic pain. She has had a history of cervical radiculopathy. She has pain in her right shoulder. Notes that activities of daily living can be problematic. 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 Notes that pain is worse when she is sitting, standing, bending, and twisting. Rates her pain as an 8/10. Feels that her medications are [place] of hydrocodone and tramadol are helpful. She also finds that Soma is helpful as a muscle relaxant. She recently lost her spouse. He in 05/2019. She is not working at this time. She is out of work secondary to the closure of her hotel because of the [place] virus (COVID-19). ALLERGIES: No known drug allergies. CURRENT MEDICATIONS: Vitamin C, aspirin 81 mg, baclofen 10 mg 1 p.o. b.i.d., Nexium 40 mg, hydrocodone 5/325 q.i.d., metoprolol XL 50 mg, multivitamins, Zoloft 25 mg b.i.d., tramadol 50 mg every 4-6 hours. PAIN CLINIC ASSESSMENT/PQRS: 1. The patient has some arthritic changes in her shoulders, neck, and elbows. She also has pain in her right knee. She is not being treated for rheumatoid arthritis. 2. Height 5 feet 4 inches, weight 131 pounds, BMI is 22. 3. Vital Signs: Blood pressure 159/96, heart rate 78, respiratory rate 18, room air saturation 95%, temperature 97.9. 4. Pain intensity 8/10. 5. Fall history: The patient has not fallen since we saw her last. 6. Blood thinner. The patient is not on a blood thinning medication. 7. Hypertension. The patient is being treated for hypertension. 8. Opioids greater than 6 weeks. [facility]. 9. Risk assessment tool, low [place] [address] PAIN MANAGEMENT CONSULTATION Name: PHIL MERCER Room: [facility]#: [id number] Admission: 07/27/19 Attend Phys: Abdias Jackson MD Discharge: Date of : 56 Report #: [id number] 10. Functional assessment tool: The patient denies. 11. Tobacco: The patient denies. PHYSICAL EXAMINATION: GENERAL: The patient is a well-developed, well-nourished white female. Appears her stated age. She is alert and oriented x 3. Does appear somewhat depressed given that she has lost her . Speech is fluent. HEENT: Normocephalic, atraumatic. Extraocular eye muscles intact. Sclerae nonicteric. Mucous membranes are moist. The patient complains of pain and discomfort down her right shoulder. HEART: Regular rate. ABDOMEN: Nontender. MUSCULOSKELETAL: Upper extremity muscle strength judged to be 5/5 for the major muscle groups in the upper extremity. The patient continues to complain of some pain that radiates down to her elbows. Has some pain in her right knee. Notes a popping sensation in her knee, particularly when she is going up and down stairs. IMPRESSION: 1. Chronic right shoulder pain. 2. Bilateral elbow pain. 3. Bilateral hip pain. 4. Bilateral knee pain. 5. Chronic intractable pain treated with complex medical management. 6. 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 RECOMMENDATIONS: We discussed treatment options with the patient. At this juncture, we will continue with her medications. A script for her medications have been provided. She will continue with her medications. She will call us if she has any concerns. Does have concerns regarding finances. 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 Hopefully, she will be able to resume work in the near future. She feels that her pain is about 50% improved with her current medication. A script for hydrocodone 7.5 mg 1 p.o. q.i.d. has been provided. The patient will also continue with tramadol 50 mg 1 p.o. t.i.d. to q.i.d. The patient will take Soma 350 mg 1 p.o. b.i.d. We would like to thank you for letting us participate in her care. We hope she continues to improve. <ELECTRONICALLY SIGNED> By: Abdias Jackson MD 08/04/19 0901 1422 1709N. MD carson Cote
== END ==
LOC: M.PC 03:58
DX: M25.511 Pain in right shoulder (principal); M25.561 Pain in right knee; M25.562 Pain in left knee; M25.551 Pain in right hip; M25.552 Pain in left hip; G89.4 Chronic pain syndrome; F32.9 Major depressive disorder, single episode, unspecified

== ENCOUNTER → 2019-09-21 | Outpatient (CLI) | payer OTHER ==
--- NOTE | 2019-10-04 15:49 | PAINCON ---
[address] [address] PAIN MANAGEMENT CONSULTATION Name: PHIL MERCER Room: [facility]#: [id number] Admission: 09/21/19 Attend Phys: Abdias Jackson MD Discharge: Date of : 56 Report #: [id number] THIS REPORT FOR: //name// cc: Syd Dixon MD, David L. MD ~ THIS REPORT FOR: //name// CC: Syd Jackson DATE OF SERVICE: 09/21/2019 PRIMARY CARE PHYSICIAN: Syd Dixon MD CHIEF COMPLAINT: Joint pain. HISTORY: The patient is a 59-year-old female who has been followed in the pain clinic. She suffers from chronic pain. She has had pain in her joints for a number of years. She is frustrated with the current situation. COVID-19 has precluded her from working. She has noticed an increase in her anxiety. She finds that her insurance is not very good. She has lost her . She rates her pain today as a 7/10. She feels that use of her medications can be helpful and decrease the pain by about 50%. She notes walking, sitting, standing, climbing stairs, lifting and bending can exacerbate her discomfort. She has returned today with the hopes of renewing her medications. She has had some elevated blood pressures. She will follow up with her primary in that regard. ALLERGIES: No known drug allergies. CURRENT MEDICATIONS: Vitamin C, aspirin 81 mg, baclofen 10 mg 1 p.o. b.i.d., Nexium 40 mg, hydrocodone 5/325 one p.o. q.i.d., metoprolol XL 50 mg, multivitamins, Zoloft 25 mg b.i.d., tramadol 50 mg every 4-6 hours. PAIN CLINIC ASSESSMENT AND PQRS: 1. The patient has some arthritic changes in her shoulders, her neck and elbows. She also has pain in her right knee. She is not being treated for rheumatoid arthritis. 2. Height 5 feet 4 inches, weight 131 pounds, BMI is 23. 3. Vital signs: Blood pressure 173/105, second blood pressure 162/100, heart rate 92, respiratory rate 16, room air saturation 96%, temperature 98.7. 4. Pain intensity 7/10. 5. Fall history: The patient has not fallen in the last 3 months. 6. Blood thinner. The patient is not on a blood thinning medication. 7. Hypertension. The patient is being treated for hypertension. 8. Opioids greater than 6 weeks. [facility] [place] [address] PAIN MANAGEMENT CONSULTATION Name: PHIL MERCER Room: [facility]#: [id number] Admission: 09/21/19 Attend Phys: Abdias Jackson MD Discharge: Date of : 56 Report #: [id number] 9. Risk assessment tool, low for opioid use. 10. Functional assessment tool. The patient denies use of illicit drugs. 11. Tobacco: The patient denies. 12. Alcohol. The patient rarely drinks alcoholic beverages. PHYSICAL EXAMINATION: GENERAL: The patient is a well-developed, well-nourished white female. Appears her stated age. She is alert and oriented x 3. Does still appear somewhat depressed given the loss of her . Speech is fluent. Still feels has the added pressure of the COVID-19 causing her to be out of work. HEENT: Normocephalic, atraumatic. Extraocular eye muscles intact. Sclerae nonicteric. Mucous membranes are moist. The patient has on a mask. The patient complains of pain and discomfort in the right shoulder. HEART: Regular rate. ABDOMEN: Nontender. MUSCULOSKELETAL: Upper extremity muscle strength judged to be 5-/5 for the major muscle groups in the upper extremity. The patient complains of pain that radiates down into her shoulders to the level of her elbows. Has some pain in her right knee. Has a popping sensation in her knee. Notes this when she is going up and down stairs. IMPRESSION: 1. Chronic right shoulder pain. 2. Bilateral elbow pain. 3. Bilateral hip pain. 4. Bilateral knee pain. 5. Chronic intractable pain treated with complex medical management. 6. 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 7. Depression secondary to COVID-19 and inability to work. RECOMMENDATIONS: We discussed treatment options with the patient. At this juncture, we will continue with her medications. A script for her medications have been renewed. The patient will continue with hydrocodone 7.5 mg 1 p.o. q.i.d. She will also continue with tramadol 50 mg 1 p.o. t.i.d. for breakthrough pain. The patient has been given 3 months of hydrocodone medication. She will also continue with Soma 350 mg 1 p.o. b.i.d. She will call us if she has any concerns. We have provided the patient with propranolol 10 mg. She will take one tablet if she develops migraine headache. The reason for propranolol is that it can traverse the blood-brain barrier. This can be more helpful than her metoprolol. I think given her elevated blood pressures, use of propranolol one tablet at the time of migraine headache and possibly increasing this to two tablets b.i.d. during the time of migraine headache might be efficacious. She will call us if [place] [address] PAIN MANAGEMENT CONSULTATION Name: PHIL MERCER Room: [facility]#: [id number] Admission: 09/21/19 Attend Phys: Abdias Jackson MD Discharge: Date of : 56 Report #: [id number] We would like to thank you for letting us participate in her care. We hope she continues to improve. <ELECTRONICALLY SIGNED> By: Abdias Jackson MD 10/04/19 1549 [id number] Jackson MD /[facility]
== END ==
LOC: M.PC 07:27
DX: M25.511 Pain in right shoulder (principal); M25.512 Pain in left shoulder; M25.551 Pain in right hip; M25.552 Pain in left hip; M25.561 Pain in right knee; M25.562 Pain in left knee; G89.29 Other chronic pain; F32.9 Major depressive disorder, single episode, unspecified; I10 Essential (primary) hypertension; F11.20 Opioid dependence, uncomplicated; Z79.899 Other long term (current) drug therapy

== ENCOUNTER → 2019-12-14 | Outpatient (CLI) | payer OTHER ==
--- NOTE | 2019-12-29 13:41 | PAINCON ---
[address] [address] PAIN MANAGEMENT CONSULTATION Name: SYLVIEPHIL A Room: [facility]#: [id number] Admission: 12/14/19 Attend Phys: Abdias Jackson MD Discharge: Date of : 56 Report #: [id number] THIS REPORT FOR: //name// cc: Syd Dixon MD, David L. MD ~ THIS REPORT FOR: //name// CC: Syd Jackson DATE OF SERVICE: 12/14/2019 CHIEF COMPLAINT: Joint pain still is problematic. HISTORY: The patient is a 59-year-old female who has been followed in the pain clinic because of chronic pain. She has pain in her joints. This has been ongoing for a number of years. She continues to have pain and rates it as a 7/10. She is not working at this juncture. She recently lost her who . She has poor insurance at this point. She notes pain is worse when she is walking, sitting, standing, bending, and lifting. Her job is quite physical. She has returned today for renewal of her medications. She states she has taken the medications as prescribed. ALLERGIES: No known drug allergies. CURRENT MEDICATIONS: Vitamin C, aspirin 81 mg, baclofen 10 mg 1 p.o. b.i.d., Nexium 40 mg, hydrocodone 5/325 one p.o. q.i.d., metoprolol XL 50 mg, multivitamins, Zoloft 25 mg b.i.d., tramadol 50 mg every 4-6 hours. PAIN CLINIC ASSESSMENT/PQRS: 1. The patient has some arthritic changes in her shoulders, neck, and elbows. Also, has pain in her knee on the right side. She is not being treated for rheumatoid arthritis. 2. Height 5 feet 4 inches, weight 137 pounds, BMI is 23. 3. Vital signs: Blood pressure 130/91, heart rate 93, respiratory rate 16, room air saturation 96%. 4. Pain intensity 11/16. 5. Fall history: The patient has not fallen since we saw her last 3 months. 6. Blood thinner. The patient is not on a blood thinning medication. 7. Hypertension. The patient is being treated for hypertension. 8. Opioids greater than 6 weeks. [facility]. 9. Risk assessment tool, low for opioid use. 10. Functional assessment tool reviewed. 11. Illegal drug use. The patient denies. 12. Tobacco: The patient denies[place] [address] PAIN MANAGEMENT CONSULTATION Name: PHIL MERCER Room: [facility]#: [id number] Admission: 12/14/19 Attend Phys: Abdias Jackson MD Discharge: Date of : 56 Report #: [id number] 13. Alcohol: The patient rarely drinks alcoholic beverages. PHYSICAL EXAMINATION: GENERAL: The patient is a well-developed, well-nourished white female. Appears her stated age. She is alert and oriented x 3. Her affect is appropriate. Speech is fluent. She is still grieving her 's . HEENT: Normocephalic, atraumatic. Extraocular eye muscles intact. Sclerae nonicteric. Mucous membranes are moist. The patient is wearing a mask. HEART: Regular rate. ABDOMEN: Nontender. LUNGS: Clear. MUSCULOSKELETAL: Upper extremity muscle strength judged to be 5-/5 for the major muscle groups in the upper extremity. The patient complains of some pain in her shoulders down to the level of her elbows. Has right knee pain. Notes pain and discomfort, particularly when going up and downstairs from her knees. IMPRESSION: 1. Chronic right shoulder pain. 2. Bilateral elbow pain. 3. Bilateral hip pain. 4. Bilateral knee pain. 5. Chronic intractable pain treated with complex medical management. 6. Depression secondary to loss of her on 05/29/2019. 7. Depression secondary to COVID-19 and difficulty finding work because of the COVID-19 pandemic. RECOMMENDATIONS: We discussed treatment options with the patient. At this juncture, we will continue with her medications. A script for her medications of hydrocodone 7.5 mg 1 p.o. q.i.d. has been provided. The patient will also continue with tramadol 50 mg 1 p.o. t.i.d. for breakthrough pain. The patient will continue with Soma. She will call us if she has any concerns. We hope she continues to improve. Hopefully, her migraine headaches will continue to decrease. She has been provided with propranolol for this. Propranolol can cross the blood brain barrier and can be helpful in mitigating headaches. We would like to thank you for letting us to participate in her care. We hope she continues to improve. <ELECTRONICALLY SIGNED> By: Abdias Jackson MD 12/29/19 1341 0851 1556N. Matt Jackson MD /[place]
== END ==
LOC: M.PC 02:27
PROVIDERS: ATTEND Anesthesiology Pain Medicine
DX: G89.29 Other chronic pain (principal); M25.511 Pain in right shoulder; M25.521 Pain in right elbow; M25.551 Pain in right hip; M25.552 Pain in left hip; M25.561 Pain in right knee; M25.562 Pain in left knee; F32.9 Major depressive disorder, single episode, unspecified; Z79.899 Other long term (current) drug therapy

== ENCOUNTER → 2020-03-07 | Outpatient (CLI) | payer OTHER ==
--- NOTE | ~2020-03-07 | PAINCON ---
[address] [address] PAIN MANAGEMENT CONSULTATION Name: PHIL MERCER Room: [facility]#: [id number] Admission: 03/07/20 Attend Phys: Abdias Jackson MD Discharge: Date of : 56 Report #: [id number] THIS REPORT FOR: //name// cc: JAMILA RENAE NP, KATHERINE J. NP ~ CC: JAMILA Jackson DATE OF SERVICE: 03/07/2020 CHIEF COMPLAINT: "Here for medications and the weather has made my joints more sore." HISTORY: The patient is a 59-year-old female who has been followed in the pain clinic. As you may recall, she has a history of chronic pain. She has pain in multiple joints. At this juncture, the weather pattern has changed. She has noticed that since the change in barometric pressure, she is having more pain and discomfort in her knees, shoulders, neck, lower back and pain in her ankles. She is having more difficulty sleeping because of the pain and swelling in her ankles. She feels that her pain medications are helpful. She rates her pain today as extremely high. She rates it as a 9/10. She states that she had a physical. She was found to be anemic. She is going to be worked up for the anemia. She is to see a type soldering machine tender. She also has history of cardiac disease. 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 She is scheduled to have a stress test in the near future. She notes that her pain is worse when doing activities of daily living. The cold has exacerbated things. Walking, sitting, standing, climbing stairs and bending are problematic. She feels that her medications are helpful. ALLERGIES: No known drug allergies. CURRENT MEDICATIONS: Vitamin C, aspirin 81 mg, baclofen 10 mg 1 p.o. b.i.d., Nexium 40 mg, hydrocodone 5/325 one p.o. q.i.d., metoprolol, the patient states that it has been raised to 200 mg daily; multivitamins, Zoloft 25 mg, tramadol 50 mg every 4-6 hours, Soma 350 mg b.i.d. PAIN CLINIC ASSESSMENT AND PQRS: 1. The patient does have some arthritic changes in her shoulders, neck, elbows. She has also pain in her knee. She states that the right one is more problematic. The patient is not being treated for rheumatoid arthritis. 2. Height 5 feet 4 inches, weight 137 pounds, BMI is 23. 3. Vital Signs: Blood pressure 141/86, heart rate 95, respiratory rate 18, room air saturation 95%, temperature 97.9. 4. Pain intensity 9/10. 5. Fall history: The patient has not fallen and required medical attention. She did note that she did fall because of her right knee, which [place] [address] PAIN MANAGEMENT CONSULTATION Name: PHIL MERCER Room: [facility] Gita#: [id number] Admission: 03/07/20 Attend Phys: Abdias Jackson MD Discharge: Date of : 56 Report #: [id number] occasion when she is going up and down stairs." 6. Blood thinner. The patient is not on a blood thinning medication. 7. Hypertension. The patient is being treated for hypertension. 8. Opioids greater than 6 weeks. The patient received medication from the pain clinic. 9. Risk assessment tool, low for opioid use. 10. Functional assessment tool, reviewed. 11. Recreational drug use: The patient denies. 12. Tobacco: The patient denies. 13. Alcohol: The patient rarely drinks alcoholic beverages. PHYSICAL EXAMINATION: GENERAL: The patient is a well-developed, well-nourished white female. Appears her stated age. She is alert and oriented x 3. Her affect is appropriate. Speech is fluent. HEENT: Normocephalic, atraumatic. Extraocular eye muscles are intact. The patient is wearing a facial covering. HEART: Regular. ABDOMEN: Nontender. LUNGS: Generally clear. MUSCULOSKELETAL: Upper extremity muscle strength judged to be 5-/5 for the major muscle groups in the upper extremity. The patient complains of pain and discomfort in her shoulders. She has pain and discomfort in her elbows. She has discomfort in her neck. She complains of some swelling in her lower leg and ankles. IMPRESSION: 1. Chronic right shoulder pain. 2. Bilateral elbow pain. 3. Bilateral hip pain. 4. Bilateral knee pain. 5. Chronic intractable pain treated with complex medical management. 6. 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 7. 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 RECOMMENDATIONS: We discussed treatment options with the patient. At this juncture, we will continue with her medications. A script for her medications has been renewed. The patient will continue with hydrocodone 7.5 mg 1 p.o. q.i.d. She will also continue with Soma 350 mg ____ 1 tablet p.o. b.i.d. The patient will use tramadol as needed. She will call us if she has any concerns. We would like to thank you for letting us participate in her care[place] [address] PAIN MANAGEMENT CONSULTATION Name: PHIL MERCER Room: [facility]#: [id number] Admission: 03/07/20 Attend Phys: Abdias Jackson MD Discharge: Date of : 56 Report #: [id number] continues to improve. The patient is aware that opioid medications can become less effective as time goes on due to tolerance. By: [id number]. Matt Jackson MD /nt
== END ==
LOC: M.PC 07:38
PROVIDERS: ATTEND Anesthesiology Pain Medicine
DX: M25.511 Pain in right shoulder (principal); G89.29 Other chronic pain; M25.522 Pain in left elbow; M25.521 Pain in right elbow; M25.561 Pain in right knee; M25.562 Pain in left knee; M25.551 Pain in right hip; M25.552 Pain in left hip; F11.20 Opioid dependence, uncomplicated; F32.9 Major depressive disorder, single episode, unspecified

== ENCOUNTER → 2020-05-30 | Outpatient (CLI) | payer OTHER | LOC: M.PC 07:57 | PROVIDERS: ATTEND Anesthesiology Pain Medicine | DX: Z76.0 Encounter for issue of repeat prescription (principal); M25.511 Pain in right shoulder; M25.521 Pain in right elbow; M25.522 Pain in left elbow; M25.551 Pain in right hip; M25.552 Pain in left hip; M25.561 Pain in right knee; M25.562 Pain in left knee; G89.29 Other chronic pain; F32.9 Major depressive disorder, single episode, unspecified ==

== ENCOUNTER → 2020-08-20 | Outpatient (CLI) | payer OTHER | LOC: M.PC 07:56 | PROVIDERS: ATTEND Anesthesiology Pain Medicine | DX: Z76.0 Encounter for issue of repeat prescription (principal); M25.561 Pain in right knee; M25.562 Pain in left knee; M25.551 Pain in right hip; M25.552 Pain in left hip; F32.9 Major depressive disorder, single episode, unspecified; F11.20 Opioid dependence, uncomplicated; Z79.899 Other long term (current) drug therapy ==

== ENCOUNTER → 2020-11-12 | Outpatient (CLI) | payer OTHER | LOC: M.PC 07:27 | PROVIDERS: ATTEND Anesthesiology Pain Medicine | DX: Z76.0 Encounter for issue of repeat prescription (principal); M25.511 Pain in right shoulder; M25.521 Pain in right elbow; M25.522 Pain in left elbow; M25.551 Pain in right hip; M25.552 Pain in left hip; M25.561 Pain in right knee; M25.562 Pain in left knee; F17.200 Nicotine dependence, unspecified, uncomplicated; F32.9 Major depressive disorder, single episode, unspecified; Z79.4 Long term (current) use of insulin; Z79.899 Other long term (current) drug therapy; Z79.891 Long term (current) use of opiate analgesic; Z72.89 Other problems related to lifestyle; Z79.82 Long term (current) use of aspirin ==